=== PATIENT | female | born 1970 | race Hispanic/Latino ===

== ENCOUNTER 2018-12-07 07:33 | Outpatient (CLI) | payer OTHER ==
--- NOTE | 2018-12-07 08:18 | ULT ---
Abdominal Ultrasound: Multiple grayscale images of right upper quadrant obtained according to protocol. INDICATION: Pain FINDINGS: Liver: Normal Gallbladder: Normal Gallbladder wall: Normal. Schaefer's Sign: Negative Common bile duct is normal. Ascites: None Spleen: Mild prominence in volume, 15.7 cm in length Pancreas: Partially obscured by bowel content, limiting assessment. Kidneys: No acute abnormalities. Aorta/IVC: No acute process. IMPRESSION: No acute abnormalities. Mild prominence of the spleen. Correlate clinically.
== END 2018-12-07 07:34 | disposition home or self-care (01) ==
LOC: BICULT 07:33
PROVIDERS: ATTEND Family Medicine
DX: R94.5 Abnormal results of liver function studies (principal)
CPT/HCPCS: 76700

== ENCOUNTER 2020-05-27 08:49 | Outpatient (CLI) | payer SELFPAY ==
--- NOTE | 2020-05-27 09:29 | RAD ---
RADIOGRAPH CHEST 2 VIEWS: DATE: 05/27/2020 HISTORY: 49-year-old female with chest pain FINDINGS: The lungs are clear. The cardiomediastinal silhouette and hilar shadows appear normal. There is no pl eural effusion or pneumothorax. No osseous abnormality is identified. IMPRESSION: Normal
== END 2020-05-27 08:50 | disposition home or self-care (01) ==
LOC: BICRAD 08:49
PROVIDERS: ATTEND Family Medicine
DX: R07.9 Chest pain, unspecified (principal)
CPT/HCPCS: 71046

== ENCOUNTER 2021-10-07 09:31 | Outpatient (CLI) | payer OTHER | END 2021-10-07 09:32 | disposition home or self-care (01) | LOC: BICRAD 09:31 | PROVIDERS: ATTEND Family Medicine | DX: M79.672 Pain in left foot (principal) ==